=== PATIENT | female | born 2000 | race Two or more races ===

== ENCOUNTER 2023-06-15 03:59 | Emergency (ER) | payer OTHER ==
[~2023-06-15] VITALS: Ht 149.9 cm; Wt 42.2 kg
[2023-06-15] MEDS ORDERED: ACETAMINOPHEN ES 500 MG TABLET ONE (05:00)
[2023-06-15] MEDS ORDERED: CYCLOBENZAPRINE 10 MG TABLET ONE (05:01)
[2023-06-15] MEDS: ACETAMINOPHEN 325 MG TABLET PO ONE (05:03)
[2023-06-15] MEDS: CYCLOBENZAPRINE 10 MG TABLET PO ONE (05:03)
[2023-06-15] MEDS ORDERED: IBUP-1955 PO (08:23)
[2023-06-15 10:04] VITALS: BP 116/75; TEMP 98.1; O2SAT 98
== END 2023-06-15 10:04 | disposition home or self-care (01) ==
LOC: ER 04:02
DX: M79.604 Pain in right leg (principal); M25.511 Pain in right shoulder; M25.571 Pain in right ankle and joints of right foot; V89.2XXA Person injured in unspecified motor-vehicle accident, traffic, initial encounter; Y93.89 Activity, other specified; Y92.89 Other specified places as the place of occurrence of the external cause; Y99.8 Other external cause status
CPT/HCPCS: 72170-TC; 73030-TC; 73552; 73590-TC; 73610-TC; 73630-TC